=== PATIENT | female | born 1960 | race Caucasian/White ===

== ENCOUNTER 2025-04-07 08:49 | Outpatient (AMB) | payer OTHER, SELFPAY ==
--- OUTSIDE RECORDS SUMMARY | 2025-04-07 09:22 | XMS_ITS | Patient Health Record ---
Author Organization [facility] Address [address] [address] Care Team Providers Care Team Physician Name Role Phone JOZEF MIRANDA Primary Care Provider Tami cappswneMari Sosa Unavailable [phone] Allergies Allergen (clinical drug ingredient) Drug/Non Drug Allergy documented on EMR Reaction Allergy Type Onset Date Status lisinopril Lisinopril Cough Drug Allergy Activ e Reason For Referral No Information Medications Medication SIG (Take, Route, Frequency, Duration) Notes Start Date End Date Status Pravastatin Sodium 20 MG 1 tablet Orally Once a day; Duration: 30 day(s) Active Pantoprazole Sodium 40 MG 1 tablet Orall y Once a day; Duration: 30 day(s) Active miSOPROStol 200 MCG 2 Orally night befor e procedure; Duration: 1 days 10/20/2018 Active Norvasc 5 MG 1 tablet Orally Once a day; Duration: 30 day(s) Active Losartan Potassium 50 MG 1 tablet Orally Once a day; Duration: 30 day(s) Active BuSpar 10 mg Twice a day Ac tive Citalopram Hydrobromide 20 MG 1 tablet Orally Once a day; Duration: 30 day(s) Active Social History Tobacco Use: Social History Observation Description Date Details (start date - stop date) Current Smoker NA - NA Tobacco Use/Smoking Question Answer Notes Are you a current smoker How many cigarettes a day do you smoke? 6-10 Alcohol Screen (Audit-C) Question Answer Notes Did you have a drink contain ing alcohol in the past year? Yes How often did you have a dri nk containing alcohol in the past year? 2 to 3 times a week (3 points) How many drinks did you have on a typical day when you were drinking in the past year? 1 or 2 drinks (0 point) Points 3 Interpretation Positive Sexual History Question Answer Notes Had sex in the past 12 months (vaginal, oral, or anal)? No Have you ever had a Sexually transmitted disease ? No Problems Problem Type SNOMED Code ICD Code Onset Dates Problem Status W/U Status Risk Notes Problem Postmenopausal bleeding (02063397) Postmenopausal bleeding (N95.0) Active confirmed Plan Of Treatment No Information Insurance Providers Payer Name Payer Address Payer Phone Subscriber Number Group Number Insured Name Patient Relationship to Insured Coverage Start Date Coverage End Date [facility] [id number] [place] [phone] [id number] ARIES JORDAN Self - patient is the insured Medical (General) History Medical History History ICD Code Essential (primary) hypertension I10 Disorder of breast, unspecified N64.9 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
--- OUTSIDE RECORDS SUMMARY | 2025-04-07 09:22 | XMS_ITS | Clinical Summary ---
Author Organization [facility] Address [address] [place] [address] Phone Care Team Providers Care Senior Warehouse Clerk Name Role Phone Physician, Pcp Unknown Primary Care Provider Tami vailable Allergies No known active allergies Social History Tobacco Use Types Packs/Day Years Used Date Smoking Tobacco: Never Assessed Comments Unknown Sex and Gender Information Value Date Recorded Sex Assigned at Not on file Legal Sex Female 8:07 AM EST Gender Identity Not on file Sexual Orientation Not on file Last Filed Vital Signs Vital Sign Reading Time Taken Comments Blood Pressure 117/70 07/28/2024 3:12 AM EDT Pulse 96 07/28/2024 3:12 AM EDT Temperature 36.8 C (98.2 F) 07/28/2024 3:12 AM EDT Respiratory Rate 16 07/28/2024 3:12 AM EDT Oxygen Saturation 96% 07/28/2024 3:12 AM EDT Inhaled Oxygen Concentration - - Weight - - Height - - Body Mass Index - - Plan of Treatment Health Maintenance Due Date Last Done Comments Breast Cancer Screening 1962 Colorectal Cancer Screening: Colonoscopy 1962 Hepatitis A Vaccines (1 of 2 - Risk 2-dose series) 1981 Cervical Cancer Screening: Pap Smear 1983 Zoster Vaccines (1 of 2) 2012 Pneumococcal Vaccine: 50+ Years (2 of 2 - PCV) 09/13/2012 09/14/2011 Depression Screening 04/22/2024 Cholesterol Screening (Lipid Panel) 07/28/2024 HIV Screening 07/28/2024 Hepatitis C Screening 07/28/2024 Social Influencers of Health Screening 07/28/2024 COVID-19 Vaccine ( season) 2024 12/20/2021, 01/26/2021, 04/29/2020, Additional history exists Influenza Vaccine (#1) 2024 , 02/26/2023, 05/14/2022, Additional history exists Hypertension/CHF/CAD Annual BMP Blood Test 07/27/2025 07/27/2024 DTaP,Tdap,and Td Vaccines (2 - Td or Tdap) 09/23/2033 09/24/2023 RSV Immunization Adult Patients (1 - 1-dose 75+ series) 2037 HIB Vaccines Aged Out No longer eligi ble based on patient's age to complete this topic HPV Vaccines Aged Out No longer eligi ble based on patient's age to complete this topic Hepatitis B Vaccines Aged Out No long er eligible based on patient's age to complete this topic IPV Vaccines Aged Out No longer eligi ble based on patient's age to complete this topic MMR Vaccines Aged Out No longer eligi ble based on patient's age to complete this topic Meningococcal ACWY Vaccine Aged Out N o longer eligible based on patient's age to complete this topic Meningococcal B Vaccine Aged Out No l onger eligible based on patient's age to complete this topic RSV Immunization Patients Under 20 months Aged Out No longer eligible based on patient's age to complete this topic Varicella Vaccines Aged Out No longer eligible based on patient's age to complete this topic Procedures Procedure Name Priority Date/Time Associated Diagnosis Comments BASIC METABOLIC PANEL STAT 07/27/2024 9:15 PM EDT from Last 3 Months or Most Recently Relevant to Health Maintenance Results * (ABNORMAL) Basic metabolic panel (07/27/2024 9:15 PM EDT) Sodium 142 133 - 145 mmol/L LAB CHEMISTRY METHOD 07/27/2024 10:22 PM EDT [facility] Potassium 4.2 3.5 - 5.5 mmol/L LAB CHEMISTRY METHOD 07/27/2024 10:22 PM EDT [facility] Chloride 108 96 - 110 mmol/L LAB CHEMISTRY METHOD 07/27/2024 10:22 PM EDT [facility] CO2 27 21 - 32 mmol/L LAB CHEMISTRY METHOD 07/27/2024 10:22 PM EDT [facility] Anion Gap 7 3 - 11 LAB CHEMISTRY METHOD 07/27/2024 10:22 PM T [facility] Glucose 118(H) 70 - 100 mg/dL LAB CHEMISTRY METHOD 07/27/2024 10:[address] [facility] BUN 11 5 - 25 mg/dL LAB CHEMISTRY METHOD 07/27/2024 10:22 PM T [facility] Creatinine 0.84 0.50 - 1.10 mg/dL LAB CHEMISTRY METHOD 07/27/2024 10:22 PM EDT [facility] eGFR 79 >=60 mL/min/1. 73m2 LAB CHEMISTRY METHOD 07/27/2024 10:22 PM T [facility] Comment:Calculation based on the Chronic Kidney Disease Epidemiology Collaboration (CKD-EPI) equation refit without adjustment for race. BUN/Creatinine Ratio 13.1 LAB CHEMISTRY METHOD 07/27/2024 10:[address] [facility] Calcium 8.9 8.5 - 10.5 mg/dL LAB CHEMISTRY METHOD 07/27/2024 10:[address] [facility] Blood Venous blood specimen / Unknown Venipuncture / Unknown 07/27/2024 9:15 PM EDT 07/27/2024 9:56 PM EDT Ty Romeo MD LAB BLOOD ORDERABLES Final Resu lt [facility] [address] [place] [address], from Last 3 Months or Most Recently Relevant to Health Maintenance Insurance [facility] Care Teams Senior Warehouse Clerk Relationship Specialty Start Date End Date Physician, Pcp Unknown PCP - General 07/27/24
--- OUTSIDE RECORDS SUMMARY | 2025-04-07 09:22 | XMS_ITS | Clinical Summary ---
Author Organization [facility] Address [address] [place] [address] Care Team Providers Care Electrical Continuity Tester Name Role Phone Unavailable Primary Care Provider Unavailabl e Social History Tobacco Use Types Packs/Day Years Used Date Smoking Tobacco: Never Assessed Comments Unknown Sex and Gender Information Value Date Recorded Sex Assigned at Not on file Legal Sex Female 2:10 PM EST Gender Identity Not on file Sexual Orientation Not on file Plan of Treatment Health Maintenance Due Date Last Done Comments Hepatitis C Screening 1962 Pap Smear 1978 DTaP/Tdap/Td (1 - Tdap) 1980 Mammogram/Breast Imaging 2002 Pneumococcal 50+ years (1 of 1 - PCV) 2012 Zoster (Shingrix) (1 of 2) 2012 COVID-19 Vaccine ( - 2024-2 6 season) 2024 Influenza (#1) 2024 RSV (1 - 1-dose 75+ series) 2037 HPV Vaccine (No Doses Required) Completed Hep A Aged Out No longer eligi ble based on patient's age to complete this topic Hep B Aged Out No longer eligi ble based on patient's age to complete this topic Hib Aged Out No longer eligi ble based on patient's age to complete this topic Meningococcal ACWY Aged Out No longer eligible based on patient's age to complete this topic Zoster (Zostavax) Discontinued
--- NOTE | 2025-04-07 10:06 | MHC.OFFVISWM ---
VS Expanded 04/07/25 10:26 Height 5 ft 5 in Weight 219 lb 6 oz BMI 36.5 Body Fat % 46.3 Body Fat Mass 101.6 Fat Free Mass 118 Visceral Fat Rating 14 Body Water % 38.1 Body Water Mass 83.6 Basal Metabolic Rate/Score 1,652 Intake Visit Reasons: TV [employer]CHIT[employer] MWL/SWL BMI 36.4 Allergies lisinopril Allergy (Mild, Verified 04/07/25 10:12) Cough Medication List - Last Reconciled 04/07/25 by Lalit Amaya MD acetaminophen 1,000 mg PO Q6H PRN amlodipine 10 mg PO DAILY atorvastatin (Lipitor) 20 mg PO DAILY celecoxib (Celebrex) 200 mg PO DAILY duloxetine 40 mg PO BID gabapentin 800 mg PO DAILY losartan 50 mg PO DAILY multivitamin (Daily Multi-Vitamin tablet) 1 tab PO DAILY pantoprazole (Protonix) 40 mg PO DAILY semaglutide (weight loss) (Wegovy) 1 mg (0.5 mL) subcut Q7D semaglutide (weight loss) (Wegovy) 0.5 mg subcut QWEEK HPI HPI [employer] MWL/SWL BMI 36.4: Details: Start time: 10.00am, End time: 10.45am ?I spent 40 minutes speaking with the patient on the phone plus an additional 5 minutes reviewing and updating records for a total of 45 minutes HPI Comments Details: Previous weight loss efforts: Rynegovy for 6 mths: claims she lost 50lbs Wakes up: 7.30am, Sleeps: 9.30pm Breakfast: skips Lunch: skips Dinner: 6pm (cheese, toasted bagel) Snacks: muffin before dinner Exercise: none Beverages: Coffee (2 cups/d with creamer), Tea: none, Soda: none, Juice: occasionally orange juice, ETOH: none PFSH Medical History (Updated 04/07/25 @ 10:38 by Lalit Amaya MD) Anxiety Depression DJD (degenerative joint disease) Hypertension GERD (gastroesophageal reflux disease) BMI 36.0-36.9,adult Obesity Surgical History (Updated 01/15/25 @ 10:19 by Gely Dumont CMA) Hx of colonoscopy Hx of wisdom tooth extraction Hx of hernia repair Hx of total knee replacement Family History (Updated 01/15/25 @ 10:21 by Gely Dumont CMA) Mother No problems noted. Father No problems noted. Son Asperger disorder Obesity Depression Anxiety Daughter Depression Anxiety Daughter Anxiety Depression Addiction Social History (Updated 01/15/25 @ 10:21 by Gely Dumont CMA) Alcohol intake: former Patient Tobacco Use Status: Current everyday Tobacco user Cigarettes Per Day: 15 Telehealth Telehealth Telehealth Platform: Telephone Location of provider rendering services: practice address Location of patient: address on file Patient Identification confirmed using: Name, : Yes Telehealth method: voice only Patient verbally consented to treatment: Yes Patient verbally consented to billing insurance company: Yes Patient informed of any privacy concerns related to visit: Yes Minutes spent on Phone/Video with Pt.: 45 Assessment & Plan Assessment & Plan (1) Obesity: Code(s): E66.9 - Obesity, unspecified Category: Medical Qualifiers: Obesity type: due to excess calories Obesity classification: adult class 2 (BMI 35 - 39.9) Serious obesity comorbidity presence: with serious comorbidity Body mass index: BMI 36.0-36.9 Qualified Code(s): E66.812 - Obesity, class 2; Z68.36 - Body mass index [BMI] 36.0-36.9, adult Plan: 1. Nutritional counseling. Start with one CELEBRATE REBUILD protein (buy online with the link I gave you) shake (HALF scoop in 8oz low fat unsweetened almond milk) at 8am-10am, 1 protein bar (CELEBRATE protein bars, buy at hospital[facility], buy online with the link I gave you) ) at 11am-1pm, another CELEBRATE REBUILD protein shakes (TWO scoops in 8oz low fat unsweetened almond milk each) at 2pm-4pm, dinner at 5pm (8 forks of protein and 8 forks of salad/vegetables), another Celebrate protein bar at 7pm-9pm. So you do 2 protein shakes, 2 protein bars and one meal per day. Meal to include lean meat (beef, fish, pork, turkey, chicken), or malaysian yogurt, or egg whites, or beans with a salad with olive oil and fruits (berries, pears, apples, kiwi). Avoid salt, breads, potatoes, rice, pasta, desserts. 2. I ordered a medication to help you with the weight loss which is called Ashley. Since you were using through your PCP the 0.5mg/week and you did not report any significant side effects, I will prescribe the 1mg. My office will try to authorize it. Please let me know when you receive it so I can give you a meal and exercise plan. Common side effects include nausea, vomiting, constipation, diarrhea, abdominal pain. Please let me know if you develop any of these symptoms. 3. Each shake would be drunk slowly, like coffee in a period of 2 hours. 4. Cut each bar in 4 pieces and eat each piece in 30min ?to make each bar last 2 hours. 5. I emphasized the importance of measuring accurately the food portion and measure it when serving the food in plate 6. The meal portions include 8 full-size forks of meat and 8 full-size forks of salad. You always eat the meat portion but you can replace up to 4 forks for salad/vegetables with rice, potatoes or pasta, or a fruit ?if you like. The less you do it the better weight loss will be. 7. One full-size fork is what it can be scooped on the fork without falling aside and not what can be bit with the fork. Use regular forks like those you find in a typical restaurant. 8.? Please buy the body composition scale we discussed and send me weight measurements as soon as possible and then once a week. Always include your diet and exercise plan. 9. The best choice would be to purchase a stationary bike at home that can track calories. If you get one, please start stationary bike at a resistance level of 4.0 Increase level by 1.0 every 3 min to a max level of 10.0. Stay at this level for 3 min and then return to level 4.0 and repeat same steps until 300 calories are burned. Goal is to burn 2000 calories per week on exercise 10. Goal is to lose at least 1.5-2lbs per week 11. Goal to lose at least 10% of your weight, which is about 19lbs. Minimum weight goal: 200lbs 12. Please follow the diet plan exactly without any change. If you don't like something about the plan or you feel hungry you need to communicate with me so I can help you revise the plan. You should not change the plan yourself Medications: New semaglutide (weight loss) (Wegovy) 1 mg (0.5 mL) subcut Q7D 2 mL 0RF E66.9 - Obesity, unspecified, I10 - Essential (primary) hypertension, Z68.36 - Body mass index [BMI] 36.0-36.9, adult
[2025-04-07 10:26] VITALS: BMI 36.5
== END 2025-04-07 10:46 | disposition home or self-care (01) ==
LOC: HO.HBS 08:49
PROVIDERS: PCP Internal Medicine; Visit Provider Surgery
DX: E66.812 Obesity, class 2 (principal); Z68.36 Body mass index [BMI] 36.0-36.9, adult
CPT/HCPCS: 99204